=== PATIENT | female | born 1955 | race Two or more races ===

== ENCOUNTER 2018-12-04 19:56 | Inpatient (IN) | payer OTHER ==
[~2018-12-04] VITALS: Ht 149.9 cm; Wt 71.0 kg
[2018-12-04] MEDS ORDERED: ACETAMINOPHEN 500 MG TAB PO ONE (20:30)
[2018-12-04] MEDS ORDERED: SODIUM CHLORIDE 0.9% 2,200 ML IV ONE (20:30)
[2018-12-04] MEDS ORDERED: VANCOMYCIN PER PHARMACY 1,000 MG IV SCH (20:30)
[2018-12-04 20:57] LABS: Basophils # (auto) 0 uL; Basophils % (auto) 0.4 % (0.0-2.0); Eosinophils # (auto) 0 uL; Eosinophils % (auto) 0.3 % (0.0-7.0); Hematocrit 41.2 % (36.0-46.0); Hemoglobin 13.8 g/dL (12.2-16.2); Lymphocytes # (auto) 0.7 uL; Lymphocytes % (auto) 7.3 % (10.0-50.0); Mean Corpuscular Hemoglobin 32.8 pg (28.0-32.0); Mean Corpuscular Hgb Conc. 33.4 g/dL (32.0-36.0); Mean Corpuscular Volume 98.1 fL (80.0-100.0); Monocytes # (auto) 0.3 uL; Neutrophils # (auto) 8.4 uL; Nucleated Red Blood Cells % 0.1 %; Platelet Count (auto) 183 10^3/uL (140-450); White Blood Cell 9.5 10^3/uL (4.4-10.8)
[2018-12-04] MEDS ORDERED: VANCOMYCIN 1GM/250ML 250 ML IV ONE (21:00)
[2018-12-04 21:12] LABS: INR 1.2 (0.9-1.15); Partial Thromboplastin Time 25.1 sec (23.64-32.05)
[2018-12-04 21:22] LABS: Albumin 2.7 g/dL (3.4-5.0); Anion Gap 8 (5-15); BUN/Creatinine Ratio 17.2; Blood Alcohol < 3.0 mg/dL (0-5); Blood Urea Nitrogen 15 mg/dL (7-18); Calcium 7.5 mg/dL (8.5-10.1); Carbon Dioxide 25 mmol/L (21-32); Chloride 106 mmol/L (98-107); GFR African American 85 mL/min; GFR Non-African American 70 mL/min; Glucose 104 mg/dL (74-106); Magnesium 1.8 mg/dL (1.6-2.6); Potassium 3.1 mmol/L (3.5-5.1); Sodium 139 mmol/L (136-145)
[2018-12-04 21:28] LABS: Alanine Aminotransferase 85 U/L (13-56); Alkaline Phosphatase 82 U/L (45-117); Aspartate Aminotransferase 28 U/L (15-37); Bilirubin, Total 0.8 mg/dL (0.2-1.0); Total Protein 6.5 g/dL (6.4-8.2)
[2018-12-04] MEDS ORDERED: ACETAMINOPHEN 650 MG RECT SUPP PR ONE (21:30)
[2018-12-04 21:36] LABS: Urine Bacteria NONE SEEN /hpf (None Seen); Urine Blood TRACE /uL (Negative); Urine Mucus FEW (None Seen); Urine WBC 3 /hpf (0 - 5)
[2018-12-04 22:08] LABS: Alcohol, Urine < 3.0 mg/dL (0-5); Amphetamine Screen, Urine NEGATIVE (NEGATIVE); Barbiturate Scree,Urine NEGATIVE (NEGATIVE); Benzodiazephine Screen, Urine NEGATIVE (NEGATIVE); Cannabinoid Screen, Urine NEGATIVE (NEGATIVE); Cocaine Screen, Urine NEGATIVE (NEGATIVE); Opiate Scree,Urine NEGATIVE (NEGATIVE); Phencyclidine Screen, Urine NEGATIVE (NEGATIVE)
[2018-12-04] MEDS ORDERED: HYDROcodone-ACET 5/325MG TAB PO PRN (23:30)
[2018-12-04] MEDS ORDERED: VANCOMYCIN PER PHARMACY 0 MG IV SCH (23:30)
[2018-12-04] MEDS ORDERED: ONDANSETRON HCL 4 MG/2 ML VIAL IV PRN (23:30)
[2018-12-05] MEDS ORDERED: PIPERACILLIN-TAZOB 3.375GM 100 ML IV SCH
[2018-12-05 01:17] LABS: Lactic Acid w/Reflex 2.3 mmol/L (0.4-2.0)
[2018-12-05] MEDS: SOD CHL 0.9%/ KCL 20MEQ 1,000 ML IV SCH ×3 (04:06→22:25)
[2018-12-05] MEDS: PIPERACILLIN-TAZOB 3.375GM 100 ML IV SCH ×3 (05:54→18:15)
[2018-12-05 06:10] VITALS: BP 126/62
[2018-12-05 08:05] LABS: Basophils # (auto) 0 uL; Basophils % (auto) 0.1 % (0.0-2.0); Eosinophils # (auto) 0.4 uL; Eosinophils % (auto) 4.5 % (0.0-7.0); Hematocrit 36.8 % (36.0-46.0); Hemoglobin 12.3 g/dL (12.2-16.2); Lymphocytes # (auto) 0.7 uL; Lymphocytes % (auto) 9.2 % (10.0-50.0); Mean Corpuscular Hemoglobin 32.8 pg (28.0-32.0); Mean Corpuscular Hgb Conc. 33.3 g/dL (32.0-36.0); Mean Corpuscular Volume 98.5 fL (80.0-100.0); Monocytes # (auto) 0.3 uL; Monocytes % (auto) 4.4 % (0.0-12.0); Neutrophils # (auto) 6.4 uL; Neutrophils % (auto) 81.8 % (37.0-80.0); Platelet Count (auto) 149 10^3/uL (140-450); Red Blood Cells 3.73 10^6/uL (4.0-5.20); Red Cell Distribution Width 13.8 % (11.8-14.3); White Blood Cell 7.9 10^3/uL (4.4-10.8)
[2018-12-05 08:23] LABS: Albumin 2.4 g/dL (3.4-5.0); Calcium 7.6 mg/dL (8.5-10.1); Potassium 3.2 mmol/L (3.5-5.1)
[2018-12-05 08:26] LABS: BUN/Creatinine Ratio 15.4; Bilirubin, Total 0.8 mg/dL (0.2-1.0); Total Protein 5.9 g/dL (6.4-8.2)
[2018-12-05 08:39] VITALS: BP 127/67
[2018-12-05] MEDS ORDERED: POTASSIUM CHL 20 Meq TABLET PO ONE (10:15)
[2018-12-05] MEDS ORDERED: PRE5T PO (10:23)
[2018-12-05] MEDS ORDERED: MET25T PO (10:23)
[2018-12-05] MEDS ORDERED: LISI-711 PO (10:23)
[2018-12-05] MEDS ORDERED: TRAM50TA2 PO (10:23)
[2018-12-05] MEDS: VANCOMYCIN 500 MG in D5W 5% 100 ML IV SCH ×2 (10:29→21:14)
[2018-12-05] MEDS: Ensure Enlive Strawberry 8oz Bottle PO SCH ×2 (12:22→17:31)
[2018-12-05 13:18] VITALS: BP 134/67
[2018-12-05] MEDS: ACETAMINOPHEN 500 MG TAB PO PRN ×2 (14:51→22:34)
[2018-12-05 16:52] VITALS: BP 126/61
[2018-12-05 21:46] VITALS: BP 124/68
[2018-12-06] MEDS: PIPERACILLIN-TAZOB 3.375GM 100 ML IV SCH ×2 (00:10→05:59)
[2018-12-06 04:33] VITALS: BP 115/62
[2018-12-06 05:53] LABS: Basophils # (auto) 0 uL; Basophils % (auto) 0.2 % (0.0-2.0); Eosinophils # (auto) 0.4 uL; Eosinophils % (auto) 7.5 % (0.0-7.0); Hemoglobin 10.5 g/dL (12.2-16.2); Lymphocytes # (auto) 0.9 uL; Lymphocytes % (auto) 16.7 % (10.0-50.0); Mean Corpuscular Hemoglobin 33.1 pg (28.0-32.0); Mean Corpuscular Hgb Conc. 35.1 g/dL (32.0-36.0); Mean Corpuscular Volume 94.4 fL (80.0-100.0); Monocytes # (auto) 0.2 uL; Monocytes % (auto) 3.6 % (0.0-12.0); Neutrophils # (auto) 3.9 uL; Platelet Count (auto) 154 10^3/uL (140-450); Red Blood Cells 3.17 10^6/uL (4.0-5.20); Red Cell Distribution Width 13.8 % (11.8-14.3); White Blood Cell 5.4 10^3/uL (4.4-10.8)
[2018-12-06 06:15] LABS: Calcium 7.5 mg/dL (8.5-10.1); Potassium 3.3 mmol/L (3.5-5.1)
[2018-12-06 06:18] LABS: BUN/Creatinine Ratio 14.3
[2018-12-06] MEDS: SOD CHL 0.9%/ KCL 20MEQ 1,000 ML IV SCH ×2 (06:43→10:53)
[2018-12-06 09:00] VITALS: BP 115/62
[2018-12-06] MEDS: Ensure Enlive Strawberry 8oz Bottle PO SCH ×3 (09:00→18:34)
[2018-12-06] MEDS: VANCOMYCIN 500 MG in D5W 5% 100 ML IV SCH (09:36)
[2018-12-06] MEDS ORDERED: POTASSIUM CHL 20 Meq TABLET PO ONE (10:00)
[2018-12-06] MEDS: LEVOFLOXACIN 500MG 100 ML IV SCH (10:52)
[2018-12-06 12:40] VITALS: BP 106/61
[2018-12-06] MEDS: ACETAMINOPHEN 500 MG TAB PO PRN (14:41)
[2018-12-06] MEDS ORDERED: VANCOMYCIN 500 MG in D5W 5% 100 ML IV ONE (16:00)
[2018-12-06 16:19] VITALS: BP 115/59
[2018-12-06] MEDS: VANCOMYCIN 750mg/250ml 250 ML IV SCH (17:35)
[2018-12-06 21:30] VITALS: BP 130/71
[2018-12-07] MEDS: SOD CHL 0.9%/ KCL 20MEQ 1,000 ML IV SCH ×2 (04:52→13:04)
[2018-12-07 05:00] VITALS: BP 133/66
[2018-12-07 05:06] LABS: BUN/Creatinine Ratio 13.7; Potassium 4.3 mmol/L (3.5-5.1)
[2018-12-07] MEDS: VANCOMYCIN 750mg/250ml 250 ML IV SCH ×2 (08:10→20:07)
[2018-12-07] MEDS: Ensure Enlive Strawberry 8oz Bottle PO SCH ×3 (08:11→18:10)
[2018-12-07 09:00] VITALS: BP 142/71
[2018-12-07] MEDS: LEVOFLOXACIN 500MG 100 ML IV SCH (09:26)
[2018-12-07 13:00] VITALS: BP 115/56
[2018-12-07 18:01] VITALS: BP 133/80
[2018-12-07 22:00] VITALS: BP 129/72
[2018-12-08] MEDS: SOD CHL 0.9%/ KCL 20MEQ 1,000 ML IV SCH ×2 (02:00→15:34)
[2018-12-08 05:06] VITALS: BP 130/76
[2018-12-08] MEDS: VANCOMYCIN 750mg/250ml 250 ML IV SCH ×2 (08:35→20:12)
[2018-12-08] MEDS: Ensure Enlive Strawberry 8oz Bottle PO SCH ×3 (08:36→18:00)
[2018-12-08 09:00] VITALS: BP 143/83
[2018-12-08] MEDS: LEVOFLOXACIN 500MG 100 ML IV SCH (11:12)
[2018-12-08 12:04] LABS: Basophils # (auto) 0 uL; Basophils % (auto) 0.6 % (0.0-2.0); Eosinophils # (auto) 0.2 uL; Eosinophils % (auto) 5.6 % (0.0-7.0); Hematocrit 30.5 % (36.0-46.0); Hemoglobin 10.3 g/dL (12.2-16.2); Lymphocytes # (auto) 0.8 uL; Lymphocytes % (auto) 24.6 % (10.0-50.0); Mean Corpuscular Hemoglobin 32.1 pg (28.0-32.0); Mean Corpuscular Hgb Conc. 33.8 g/dL (32.0-36.0); Monocytes # (auto) 0.1 uL; Monocytes % (auto) 4.8 % (0.0-12.0); Neutrophils % (auto) 64.4 % (37.0-80.0); Platelet Count (auto) 163 10^3/uL (140-450); Red Blood Cells 3.21 10^6/uL (4.0-5.20); Red Cell Distribution Width 13.4 % (11.8-14.3); White Blood Cell 3.1 10^3/uL (4.4-10.8)
[2018-12-08 12:18] LABS: BUN/Creatinine Ratio 8.7; Calcium 8.3 mg/dL (8.5-10.1)
[2018-12-08 13:00] VITALS: BP 146/89
[2018-12-08 18:19] VITALS: BP 126/62
[2018-12-08 22:23] VITALS: BP 136/67
[2018-12-09] MEDS: SOD CHL 0.9%/ KCL 20MEQ 1,000 ML IV SCH (02:43)
[2018-12-09] MEDS ORDERED: CHOL20007 OR (04:54)
[2018-12-09] MEDS ORDERED: GABA100C9 PO (04:54)
[2018-12-09 05:16] VITALS: BP 141/66
[2018-12-09] MEDS: VANCOMYCIN 750mg/250ml 250 ML IV SCH ×2 (08:13→20:20)
[2018-12-09] MEDS: Ensure Enlive Strawberry 8oz Bottle PO SCH ×2 (08:19→12:16)
[2018-12-09 09:00] VITALS: BP 133/82
[2018-12-09] MEDS: LEVOFLOXACIN 500MG 100 ML IV SCH (10:00)
[2018-12-09] MEDS ORDERED: metroNIDAZOLE 500 MG TAB PO ONE (10:30)
[2018-12-09] MEDS ORDERED: FLORASTOR (S. BOULARDII) 250 MG CAP PO ONE (10:45)
[2018-12-09 13:00] VITALS: BP 131/66
[2018-12-09] MEDS: metroNIDAZOLE 500 MG TAB PO SCH ×2 (14:00→21:50)
[2018-12-09 17:00] VITALS: BP 126/71
[2018-12-09 22:00] VITALS: BP 111/52
[2018-12-10 04:59] VITALS: BP 128/76
[2018-12-10] MEDS: metroNIDAZOLE 500 MG TAB PO SCH ×2 (05:53→15:31)
[2018-12-10] MEDS: ACETAMINOPHEN 500 MG TAB PO PRN (05:54)
[2018-12-10] MEDS: VANCOMYCIN 750mg/250ml 250 ML IV SCH (08:06)
[2018-12-10 08:38] VITALS: BP 117/67
[2018-12-10] MEDS ORDERED: FLORASTOR (S. BOULARDII) 250 MG CAP PO SCH (10:00)
[2018-12-10] MEDS ORDERED: LEVOFLOXACIN 500 MG TAB PO SCH (10:00)
[2018-12-10] MEDS ORDERED: LOPERAMIDE HCL 2 MG CAP PO ONE (10:45)
[2018-12-10 13:00] VITALS: BP 129/68
== END 2018-12-10 16:00 | disposition home or self-care (01) | DRG 862 ==
LOC: EDBD 19:56 → ER 19:56 → OVERFLOW 19:57 → CENTRAL 12-05 03:26
PROVIDERS: ADMIT Internal Medicine; ATTEND Internal Medicine
DX: T81.41XA Infection following a procedure, superficial incisional surgical site, initial encounter (principal); A41.9 Sepsis, unspecified organism; G92 Toxic encephalopathy; E44.0 Moderate protein-calorie malnutrition; C50.912 Malignant neoplasm of unspecified site of left female breast; E87.6 Hypokalemia; I10 Essential (primary) hypertension; E66.9 Obesity, unspecified; Y83.8 Other surgical procedures as the cause of abnormal reaction of the patient, or of later complication, without mention of misadventure at the time of the procedure; Z68.31 Body mass index [BMI] 31.0-31.9, adult; Z90.12 Acquired absence of left breast and nipple; Z92.21 Personal history of antineoplastic chemotherapy; Y92.89 Other specified places as the place of occurrence of the external cause; Z79.899 Other long term (current) drug therapy
CPT/HCPCS: 36415; 36600; 70450; 71045; 76642; 80048; 80053; 80202; 80307; 80320; 81001; 82553; 82565; 82805; 82962; 83605; 83735; 83880; 84484; 85025; 85379; 85384; 85610; 85730; 87040; 87045; 87081; 87086; 87205; 87427; 87493; 93971; 97110; 97116; 97530; G0378; J1956; J2405; J2543; J7060

== ENCOUNTER 2024-11-16 00:05 | Emergency (ER) | payer OTHER ==
[~2024-11-16] VITALS: Ht 149.9 cm; Wt 72.6 kg
[~2024-11-16 00:05] MED LIST: CHOL20007 OR; GABA-1308 PO; LISI-711 PO; MET25T PO
[2024-11-16 00:14] VITALS: BP 168/91
[2024-11-16 01:00] VITALS: PULSE 79; RESP 16; TEMP 98.6; O2SAT 96
[2024-11-16] MEDS: HYDROcodone-ACET 5/325MG TAB PO ONE (01:34)
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
[2024-11-16] MEDS ORDERED: IBU600T PO (02:53)
[2024-11-16] MEDS ORDERED: CYCL-838 PO (02:53)
--- NOTE | 2024-11-18 06:33 | ECG ---
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
== END 2024-11-16 03:28 | disposition home or self-care (01) ==
LOC: EDBD 00:05 → ER 00:05
DX: S16.1XXA Strain of muscle, fascia and tendon at neck level, initial encounter (principal); S20.219A Contusion of unspecified front wall of thorax, initial encounter; S46.812A Strain of other muscles, fascia and tendons at shoulder and upper arm level, left arm, initial encounter; Z79.899 Other long term (current) drug therapy; V43.52XA Car driver injured in collision with other type car in traffic accident, initial encounter; Y93.I9 Activity, other involving external motion; Y92.488 Other paved roadways as the place of occurrence of the external cause; Y99.8 Other external cause status
CPT/HCPCS: 71045; 72040; 73070; 93005